=== PATIENT | female | born 1985 | race Caucasian/White ===

== ENCOUNTER 2023-01-29 19:47 | Emergency (ER) | payer OTHER ==
[2023-01-29] MEDS ORDERED: Famotidine 20 MG/2 ML SDV IVPUSH ONE (19:58)
[2023-01-29] MEDS ORDERED: methylPREDNISolone Sodium Succinate 125 MG/2 ML SDV IVPUSH ONE (19:58)
[2023-01-29] MEDS ORDERED: EPINEPHrine 1 MG/ML SDV IM ONE (19:58)
[2023-01-29] MEDS ORDERED: EPINEPHrine 1 MG/ML SDV ONE (19:59)
[2023-01-29] MEDS ORDERED: methylPREDNISolone Sodium Succinate 125 MG/2 ML SDV ONE (19:59)
[2023-01-29] MEDS ORDERED: diphenhydrAMINE 50 MG/ML SDV ONE (19:59)
[2023-01-29] MEDS ORDERED: diphenhydrAMINE 50 MG/ML SDV IVPUSH ONE (19:59)
[2023-01-29] MEDS ORDERED: Famotidine 20 MG/2 ML SDV ONE (20:00)
== END 2023-01-29 22:16 | disposition home or self-care (01) ==
LOC: JD.ED 19:47
DX: F41.9 Anxiety disorder, unspecified (principal); L29.9 Pruritus, unspecified; T36.0X5A Adverse effect of penicillins, initial encounter; Z88.0 Allergy status to penicillin
CPT/HCPCS: 96372; 96374; 96375; 99283; J0171; J2930; J3490; 99284